=== PATIENT | female | born 1965 | race Asian ===

== ENCOUNTER → 2018-07-05 | Outpatient (CLI) | payer OTHER ==
--- NOTE | 2018-07-05 12:48 | DIAGNOSTIC IMAGING REPORT ---
SINGLE VIEW PELVIS STUDY: 2 VIEWS LEFT HIP CLINICAL HISTORY: Left hip pain. FINDINGS: An AP view of the pelvis with AP and frog-leg views of the left hip are obtained. No prior studies are available for comparison at the time of dictation. The skeletal structures are well mineralized. No fracture is identified involving the hips or bony pelvis. The joint spaces of the hips appear maintained noting minimal degenerative change. Sclerotic change is seen in the sacroiliac joints. The overlying soft tissues are within normal limits. No bowel obstruction is seen. IMPRESSION: No acute bony abnormality is identified in the hips or pelvis. Electronically signed by: Zackery Villanueva M.D. 07/05/2018 12:47 PM Dictated Date/Time: 07/05/2018 12:45 PM
== END | disposition home or self-care (01) ==
LOC: C.RAD1850 12:24
PROVIDERS: ATTEND Family Medicine
DX: M25.552 Pain in left hip (principal); W19.XXXA Unspecified fall, initial encounter